=== PATIENT | male | born 1935 | race Caucasian/White ===

== ENCOUNTER 2018-11-19 12:52 | Inpatient (IN) ==
[2018-11-19] MEDS ORDERED: ZOFRAN ONE (13:03)
--- NOTE | 2018-11-19 13:22 | Diag Imaging Result Doc PS360 ---
EXAM: CT HEAD W/O CONTRAST HISTORY: AMS TECHNIQUE: CT head without contrast COMPARISON: 07/28/2017 FINDINGS: No parenchymal hemorrhage. No epidural or subdural hematoma. No subarachnoid hemorrhage. There is atrophy with chronic microvascular ischemic changes. No mass identified on this noncontrasted exam. No hydrocephalus. No sinus opacification. IMPRESSION: 1.No hemorrhage 2.Atrophy with chronic microvascular ischemic changes This exam was performed using automated exposure control, adjustment of mA or kV according to patient size, and/or use of iterative reconstruction technique. Electronically signed by Jon Espino 11/19/2018 1:20 PM
[2018-11-19] MEDS ORDERED: ATROPINE IV ONE ×2 (13:24→15:01)
[2018-11-19] MEDS ORDERED: ATROPINE ONE (13:26)
[2018-11-19 13:44] LABS: BASO# 0.01 X1000 (0.0-0.2); BASO% 0.1 % (0.0-0.8); EOS# 0.08 X1000 (0.0-0.7); EOS% 1.1 % (0.0-10.0); HEMATOCRIT 35.4 % (42.0-52.0); HEMOGLOBIN 12.2 g/dL (14.0-18.0); IMM GRAN# 0.02 X1000 (0.0-0.04); IMM GRAN% 0.3 % (0.0-0.5); LYMPH# 0.96 X1000 (1.2-3.4); LYMPH% 13.3 % (20.5-51.1); MCH 29.1 PG (27-31); MCHC 34.5 g/dL (33-37); MCV 84.5 FL (81-99); MONO# 0.38 X1000 (0.11-0.59); MONO% 5.3 % (1.7-9.3); MPV 10.6 FL (7.4-10.4); NEUT# 5.77 X1000 (1.4-6.5); NEUT% 79.9 % (42.2-75.2); PLT 149 X1000 (130-400); RBC 4.19 XMIL (4.7-6.1); RDW 13.4 % (11.5-14.5); WBC 7.22 X1000 (4.8-10.8)
[2018-11-19 13:49] LABS: INR 1.16; PROTIME 15.4 Seconds (11.0-16.0)
[2018-11-19 13:50] LABS: PTT 30.9 Seconds (22.3-41.8)
[2018-11-19 13:57] LABS: AGAP 12; ALBUMIN 4.3 g/dL (3.5-5.0); ALKALINE PHOSPHATASE 112 U/L (32-122); BUN 19 mg/dL (8-22); CHLORIDE 104 mmol/L (98-107); COSMO 286; CREATININE 0.9 mg/dL (0.7-1.2); ESTIMATED GFR > 60; GLUCOSE 179 mg/dL (70-104); GOT 25 U/L (10-34); GPT 19 U/L (10-44); POTASSIUM 3.9 mmol/L (3.5-5.1); SODIUM 140 mmol/L (136-145); TCO2 24 mmol/L (25-35); TOTAL PROTEIN 6.4 g/dL (6.3-8.3)
--- NOTE | 2018-11-19 14:13 | Diag Imaging Result Doc PS360 ---
EXAM: CHEST-1 VIEW HISTORY: AMS, vomiting TECHNIQUE: Chest single view COMPARISON: 11/02/2017 FINDINGS: The lungs are well expanded. The heart is not enlarged. The vessels are not distended. There are no infiltrates. No effusion identified. There is scarring in the medial right base. IMPRESSION: Right base scarring. Electronically signed by Jon Espino 11/19/2018 2:11 PM
[2018-11-19 14:18] LABS: BLOOD TYPE ARTERIAL; SAMPLE BLOOD
[2018-11-19 14:19] LABS: BE -0.7 mmoll (-3.0-3.0); HCO3-(ACT) 24.4 mmoll (20.0-26.0); METHB 1.2 % (0.0-1.5); O2HB 96.1 % (95.0-99.0); PCO2(98.6) 44 mmHg (35-45); PO2(98.6) 103 mmHg (60-100); SAO2 99.7 % (95.0-100.0); THB 11.7 g/dL (11.5-17.4); pH(98.6) 7.36 (7.35-7.45)
[2018-11-19 14:23] LABS: ALLEN TEST YES; MODALITY ROOM AIR
[2018-11-19] MEDS ORDERED: NS 1,000 ML IV ONE ×2 (14:28→21:02)
--- NOTE | 2018-11-19 14:28 | EKG Report ---
Test Performed on : 11/19/2018 12:55:47 PM Test Reason : AMS, vomiting Blood Pressure : / mmHG Vent. Rate : 058 BPM Atrial Rate : 058 BPM P-R Int : 166 ms QRS Dur : 102 ms QT Int : 510 ms P-R-T Axes : 054 019 048 degrees QTc Int : 500 ms Sinus bradycardia. with marked sinus arrhythmia. Septal infarct , age undetermined Prolonged QT Abnormal ECG When compared with ECG of 09-OCT-2018 13:36, Septal infarct is now present QT has lengthened Unconfirmed Result
[2018-11-19 14:42] LABS: URINE SOURCE CATH
[2018-11-19] MEDS ORDERED: AZACTAM 1 GM in NS 50 ML IV ONE (14:48)
[2018-11-19] MEDS ORDERED: VANCOMYCIN 1 GM/NS 1 GM/250 ML IVPB IV ONE (14:48)
[2018-11-19 15:00] LABS: BILIRUBIN URINE NEGATIVE (NEGATIVE); BLOOD URINE 4+ (NEGATIVE); GLUCOSE URINE NEGATIVE (NEGATIVE); KETONE URINE 2+(Moderate) mg/dL (NEGATIVE); LEUKOCYTES URINE TRACE (NEGATIVE); NITRITE URINE NEGATIVE (NEGATIVE); PROTEIN URINE 1+(30 mg/dL) mg/dL (NEGATIVE); SP GRAVITY URINE 1.025; UROBILINOGEN URINE NORMAL
[2018-11-19 15:01] LABS: CLARITY CLEAR (CLEAR); COLOR YELLOW
[2018-11-19 15:05] LABS: UR AMPHETAMINES QUAL NONE DETECTED (NONE DETECT); UR BARBITUATES QUAL NONE DETECTED (NONE DETECT); UR BENZODIAZEPIN QUAL PRESUMPTIVE POSITIVE (NONE DETECT); UR CANNABINOIDS QUAL NONE DETECTED (NONE DETECT); UR COCAINE QUAL NONE DETECTED (NONE DETECT); UR METHADONE QUAL NONE DETECTED (NONE DETECT); UR METHAMPHETAMINE QUAL NONE DETECTED (NONE DETECT); UR OPIATES QUAL NONE DETECTED (NONE DETECT); UR OXYCODONE QUAL NONE DETECTED (NONE DETECT); UR PCP QUAL NONE DETECTED (NONE DETECT); UR PROPOXYPHENE QUAL NONE DETECTED (NONE DETECT); UR TCA QUAL PRESUMPTIVE POSITIVE (NONE DETECT)
--- NOTE | 2018-11-19 18:51 | PROVIDER DOCUMENTATION ---
This chart was entered by Vandana Pinzon Scribe, acting as scribe for Kristian Amos MD. HPI-General Adult - General Stated Complaint: N/V CHEST PAIN Time Seen by Provider: 11/19/18 13:11 Source: patient, family () Allergies/Adverse Reactions: Patient Allergies Allergy/AdvReac Type Severity Reaction Status Date / Time codeine [Codeine] Allergy Intermediate Unknown Verified 11/19/18 14:16 Home Medications: Home Medication List Medication Instructions Recorded Confirmed Last Taken Type Atorvastatin Calcium [Lipitor] 40 mg PO HS 07/11/12 11/19/18 11/18/18 History Tamsulosin [Flomax] 0.4 mg PO DAILY 07/11/12 11/19/18 11/18/18 History Fish Oil/Dha/Epa [Fish Oil 1,200 1 ea PO DAILY 10/09/18 11/19/18 11/18/18 History mg Fish Oil] Acetaminophen 2 tab PO Q4H PRN PRN 10/16/18 11/19/18 11/18/18 History BENAZEpril [Lotensin] 10 mg PO DAILY 11/19/18 11/19/18 11/18/18 History Donepezil [Aricept] 10 mg PO DAILY 11/19/18 11/19/18 11/18/18 History Memantine HCl [Namenda] 10 mg PO DAILY 11/19/18 11/19/18 11/18/18 History Omeprazole 40 mg PO DAILY 11/19/18 11/19/18 11/18/18 History Quetiapine Fumarate [Seroquel] 100 mg PO HS 11/19/18 11/19/18 11/18/18 History - History of Present Illness -Gen Adult Nature of Presenting Problems: Patient is a 83 year old male who presents to the ED via EMS with generalized body aches, nausea, vomiting, headache and diaphoresis. states symptoms started after patient ate breakfast from [employer]. Patient denies chest pain, shortness of breath, and vision changes. Location of Pain/Injury: reports: generalized Pain Radiation: reports: no radiation Quality of Pain: reports: aching Severity: reports: mild Onset/Duration: reports: this morning Timing: reports: still present Context/Activities at Onset: reports: light activity Associated Symptoms: reports: diaphoresis, headaches, nausea, vomiting Similar Symptoms Previously?: No Recently seen or treated by another doctor?: No Review of Systems - Adult - REVIEW OF SYSTEMS - ADULT Constitutional: reports: no symptoms reported. denies: chills, fever, fatique Eyes: reports: no symptoms reported. denies: decreased vision, blurred vision, double vision Ears, Nose, Mouth & Throat: reports: no symptoms reported. denies: ear pain, nose pain, throat pain Cardiovascular: reports: no symptoms reported Respiratory: reports: no symptoms reported. denies: cough, shortness of breath, wheezing Gastrointestinal: reports: see HPI, nausea, vomiting. denies: abdominal pain, diarrhea Genitourinary: reports: no symptoms reported Musculoskeletal: reports: see HPI, muscle aches (generalized). denies: back pain, neck pain Integumentary: reports: no symptoms reported Neurological: reports: see HPI, headache/migraines (TILL[place]). denies: dizziness/vertigo, seizure, syncope Psychiatric: reports: no symptoms reported Endocrine: reports: no symptoms reported Hematologic/Lymphatic: reports: no symptoms reported Allergic/Immunologic: reports: no symptoms reported All Other Systems: Reviewed and Negative Past History - Adult - PAST MEDICAL HISTORY-ADULT Review of Records: reports: Old Records Reviewed, Nursing Assessment Review, Medications Reviewed, Social history reviewed & non-contributory. Major Childhood Illnesses: reports: denies history Cardiovascular: reports: HTN Respiratory: reports: asthma Gastrointestinal: reports: denies history Obstetrical/Gynecological: reports: denies history Genitourinary: reports: prostate cancer, other (renal disease) Musculoskeletal: reports: denies history Neurological: reports: dementia Endocrine/Immune: reports: denies history Other Conditions: reports: denies history - PRIOR SURGERIES/PROCEDURES Surgical/Procedure History: reports: reviewed, not pertinent, other (shoulder, prostecomy) - IMMUNIZATION STATUS Childhood Immunizations: See Nurse Assessment Flu Vaccine: See Nurse Assessment - FAMILY HISTORY Family History: reviewed, not pertinent - SOCIAL HISTORY Smoking: denies Substance Use: denies Living Situation: family Physical Exam-General - PHYSICAL EXAM-ADULT Initial Vital Signs Reviewed: Yes - CONSTITUTIONAL General Appearance: alert, no apparent distress, slow to respond. negative: obtunded - EYES Eyes: other (pinpoint pupils bilaterally). negative: scleral icterus, sunken eyes - HEAD, EARS, NOSE, MOUTH & THROAT HENMT: normocephalic/atraumatic, moist mucous membranes. negative: angioedema - RESPIRATORY Respiratory: chest non-tender, lungs clear, normal breath sounds. negative: crackles, rhonchi - CARDIOVASCULAR Cardiovascular: normal peripheral pulses, regular rate, rhythm. negative: tachycardia - GASTROINTESTINAL (ABDOMEN) Abdominal Exam: normal bowel sounds, non tender, soft. negative: rebound - MUSCULOSKELETAL Extremity: normal inspection. negative: deformity, erythema - SKIN Integumentary: normal color, normal turgor, warm/dry. negative: cyanosis, ecchymosis, jaundice - NEUROLOGIC Neurologic: other (unable to follow commands). negative: aphasia, facial droop - PSYCHIATRIC Psych/Mental Status: other (slow to respond). negative: normal mood/affect, anxious Progress - PLAN OF CARE/RESULTS Progress/Plan/Lab Results: Laboratory Results - last 24 hr 11/19/18 12:59 POC Glucose 172 H Orders Category Date Time Status Cardiac Monitoring DIRECTED Care 11/19/18 13:07 Active Nursing- Obtain EKG ONCE Care 11/19/18 13:07 Active CHEST-1 VIEW [RAD] Stat Exams 11/19/18 13:[address] HEAD W/O CONTRAST [CT] Stat Exams 11/19/18 13:05 Ordered BLOOD CULTURE [BLDCUL] Stat Lab 11/19/18 13:07 Uncollected CBC WITH DIFF [HEME] Stat Lab 11/19/18 13:06 Uncollected CK PROFILE [SP CHEM] Stat Lab 11/19/18 13:07 Ordered COMPREHENSIVE METABOLIC PANEL [CHEM] Stat Lab 11/19/18 13:07 Uncollected LACTATE, PLASMA [CHEM] Stat Lab 11/19/18 13:07 Uncollected TROPONIN T Stat Lab 11/19/18 13:07 [address]IS DIPSTICK ONLY PL [URINALYSIS] Stat Lab 11/19/18 13:07 Uncollected URINE DRUG SCREEN PL Stat Lab 11/19/18 13:07 Uncollected Ondansetron [Zofran] Med 11/19/18 13:03 Discontinued 4 mg .ROUTE .STK-MED ONE EKG [EKG] Stat Ther 11/19/18 13:07 Ordered Result Diagrams: 11/19/18 13:04 11/19/18 13:04 - EKG 1 Time of EKG reading by physician:: 12:55 EKG Read and Signed by:: Kristian Amos EKG Interpretation (*Must complete 3 of following elements*): Abnormal Rate: 58 Rhythm: sinus bradycardia with marked sinus arrhythmia [place]: normal [place] Interval: normal Comments: septal infarct, age undetermined; prolonged QT - XRAY 1 XRAY Study: Chest Impression: See EMR Report ( EXAM: CHEST-1 VIEW HISTORY: AMS, vomiting TECHNIQUE: Chest single view COMPARISON: 11/02/2017 FINDINGS: The lungs are well expanded. The heart is not enlarged. The vessels are not distended. There are no infiltrates. No effusion identified. There is scarring in the medial right base. IMPRESSION: Right base scarring. Electronically signed by Jon Espino 11/19/2018 2:11 PM 11/19/18 1411 Interpreting Physician: Jon Espino MD Dictated Date/Time: 11/19/18 1410 cc: Kristian Amos MD; None,PCP) - CT/MRI 1 CT Study: Head Impression: See EMR Report ( EXAM: CT HEAD W/O CONTRAST HISTORY: AMS TECHNIQUE: CT head without contrast COMPARISON: 07/28/2017 FINDINGS: No parenchymal hemorrhage. No epidural or subdural hematoma. No subarachnoid hemorrhage. There is atrophy with chronic microvascular ischemic changes. No mass identified on this noncontrasted exam. No hydrocephalus. No sinus opacification. IMPRESSION: 1.No hemorrhage 2.Atrophy with chronic microvascular ischemic changes This exam was performed using automated exposure control, adjustment of mA or kV according to patient size, and/or use of iterative reconstruction technique. Electronically signed by Jon Espino 11/19/2018 1:20 PM 11/19/18 1320 Interpreting Physician: Jon Espino MD Dictated Date/Time: 11/19/18 1318 cc: Kristian Amos MD;) - CONSULTS/PCP/HOSPITALIST Notification #1 *Consult/PCP/Hospitalist*: Dr. Hutchison Time Discussed: 15:56 Reason/Comments: Dr. Amos consulted with Dr. Hutchison about patient. Consult Disposition: other (Dr. Hutchison states he does not put in pacemakers.) #2 Consult: Silvia production editor @ . 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 These instructions are being provided to you so you can have an understanding of how to care for yourself upon discharge. Upon discharge from the Emergency Department, you are responsible for making arrangements for follow-up care by a physician of your choice. Take all prescribed medications as directed. Return to the Emergency Department immediately for any new or worsening symptoms. You may call the Physician Referral phone number at [phone] to obtain a list of Physicians who are taking new patients. Referrals and Follow-Ups: None,PCP [Primary Care Provider] - - Critical Care Note This patient required my direct & personal management of CC.: Yes Total Time (mins): 45 Critical Care Statement: This patient required my direct personal management to treat or rule out processes, the absence of which, could potentiallly result in sudden, clinically significant life or limb threatening deterioration. Attestation - Physician/ YVONNE Attestation Patient care was provided by Advanced Practice Provider:: No The physician spent face to face time with patient:: Yes Advanced Practice Provider documentation review:: Supervising physician onsite and consulted in the evaluation and care of this patient. The physician did have a face to face encounter with the patient. This chart was documented by the indicated scribe, (Vandana Pinzon Scribe) and accurately reflects the services I performed and decisions made by me, Kristian Amos MD, as attested by the provider's signature.
[2018-11-19] MEDS ORDERED: NS 1,000 ML ONE (20:48)
[2018-11-19 21:52] LABS: BILIRUBIN URINE NEGATIVE (NEGATIVE); BLOOD URINE 1+ (NEGATIVE); COLOR YELLOW; GLUCOSE URINE NEGATIVE (NEGATIVE); KETONE URINE TRACE mg/dL (NEGATIVE); LEUKOCYTES URINE TRACE (NEGATIVE); NITRITE URINE NEGATIVE (NEGATIVE); PROTEIN URINE TRACE mg/dL (NEGATIVE); URINE SOURCE CATH; UROBILINOGEN URINE 4 mg/dL
[2018-11-19 21:53] LABS: CLARITY CLEAR (CLEAR); URINE BACTERIA NEGATIVE /HFP; URINE EPITHELIAL CELLS <10 /HPF (<10); URINE WBC <10 /HPF (<10)
[2018-11-20 02:27] LABS: BASO# 0.02 X1000 (0.0-0.2); BASO% 0.3 % (0.0-0.8); EOS# 0.09 X1000 (0.0-0.7); EOS% 1.4 % (0.0-10.0); HEMATOCRIT 33.8 % (42.0-52.0); HEMOGLOBIN 11.6 g/dL (14.0-18.0); IMM GRAN# 0.01 X1000 (0.0-0.04); IMM GRAN% 0.2 % (0.0-0.5); LYMPH# 1.57 X1000 (1.2-3.4); LYMPH% 24.6 % (20.5-51.1); MCH 29.4 PG (27-31); MCHC 34.3 g/dL (33-37); MCV 85.6 FL (81-99); MONO# 0.47 X1000 (0.11-0.59); MONO% 7.4 % (1.7-9.3); NEUT# 4.21 X1000 (1.4-6.5); NEUT% 66.1 % (42.2-75.2); PLT 153 X1000 (130-400); RBC 3.95 XMIL (4.7-6.1); RDW 13.5 % (11.5-14.5); WBC 6.37 X1000 (4.8-10.8)
[2018-11-20 03:24] LABS: AGAP 11; ALBUMIN 3.9 g/dL (3.5-5.0); ALKALINE PHOSPHATASE 103 U/L (32-122); BUN 18 mg/dL (8-22); CALCIUM 8.7 mg/dL (8.8-10.2); CHLORIDE 108 mmol/L (98-107); COSMO 286; CREATININE 0.9 mg/dL (0.7-1.2); ESTIMATED GFR > 60; GLUCOSE 87 mg/dL (70-104); GOT 24 U/L (10-34); GPT 17 U/L (10-44); POTASSIUM 4.1 mmol/L (3.5-5.1); SODIUM 143 mmol/L (136-145); TCO2 25 mmol/L (25-35)
[2018-11-20] MEDS ORDERED: TYLENOL PO PRN (09:03)
[2018-11-20] MEDS: PRILOSEC PO SCH (09:44)
[2018-11-20] MEDS: ARICEPT PO SCH (09:45)
[2018-11-20] MEDS: TYLENOL PO PRN ×2 (09:45→22:52)
[2018-11-20] MEDS: FLOMAX PO SCH (09:46)
[2018-11-20] MEDS: FISH OIL CONCENTRATE PO SCH (09:46)
[2018-11-20] MEDS: NS 1,000 ML IV SCH ×2 (09:46→15:57)
[2018-11-20] MEDS: LOTENSIN PO SCH (09:46)
[2018-11-20] MEDS: NAMENDA PO SCH (09:47)
--- NOTE | 2018-11-20 10:11 | HISTORY AND PHYSICAL ---
PRIMARY CARE PHYSICIAN: Elke Desouza MD CHIEF COMPLAINT: Body aches, generalized, with nausea, vomiting, headache, and diaphoresis. HISTORY OF PRESENTING ILLNESS: This is an 83-year-old male, who presents to [facility] ER via EMS with complaints of generalized body aches, nausea, vomiting, headache, and diaphoresis. The states that the symptoms started after the patient ate breakfast from [employer]. He denied any chest pain, shortness of breath, or vision changes. When he arrived, he was found to have a heart rate of 42. He had a temperature of 94.8 degrees, that approximately an hour later went down to a 93.6. His laboratory data was unremarkable. His head CT showed no hemorrhage, but atrophy with chronic microvascular ischemic changes. Chest x- ray showed right base scarring. His EKG showed sinus bradycardia with marked sinus arrhythmia at 58. He was placed on a Jonn Hugger due to his hypothermia. Around 8:20 p.m. last night, his core temperature was noted to be 99, and the Jonn Hugger was removed. He was noted to have some confusion when he arrived. It is unclear if possibly the patient has been receiving too much of his Seroquel causing his bradycardia. After being admitted around 6 a.m. this morning, the patient was pulling at his medical equipment, trying to get out of the bed, pulling at his [place], and was confused, so he was placed in 4-point soft wrist and ankle restraints and admitted to the intensive care unit for further evaluation and treatment. PAST MEDICAL HISTORY: Hypertension, asthma, prostate cancer, dementia, and renal disease. PAST SURGICAL HISTORY: Shoulder surgery and a prostatectomy. FAMILY HISTORY: Reviewed and noncontributory. SOCIAL HISTORY: Currently lives with family. Denies any tobacco, alcohol, or illicit drug use. ALLERGIES: Codeine. HOME MEDICATIONS: We will hold his Seroquel 100 mg p.o. at bedtime. Continue the following: Acetaminophen 325 mg 2 tablets p.o. q.4 h. P.r.n. Lipitor 40 mg p.o. at bedtime. Benazepril 10 mg p.o. daily. Donepezil 10 mg p.o. daily. Fish oil 1200 mg p.o. daily. Namenda 10 mg p.o. daily. Omeprazole 40 mg p.o. daily. Tamsulosin 0.4 mg p.o. daily. DIAGNOSTIC STUDIES: White blood cell count of 7.22, hemoglobin 12.2, hematocrit 35.4, platelets 149,000. PT 15.4, INR 1.16. ABG with a pH of 7.36, pCO2 of 44, PO2 of 103, bicarbonate 24.4. Sodium 140, potassium 3.9, chloride 104, CO2 of 24, BUN of 19, creatinine 0.9, glucose 179. Cardiac enzymes were negative plasma lactate of 1.7. Urinalysis was negative. Urine drug screen was presumptive positive for tricyclics and benzodiazepines. Head CT showed no hemorrhage, atrophy with chronic microvascular ischemic changes. Chest x-ray showed right base scarring. EKG showed sinus bradycardia with marked sinus arrhythmia. REVIEW OF SYSTEMS: He denied any fever. He was actually hypothermic, had body aches, nausea, vomiting, headache, diaphoresis. Denied any chest pain, coughing, shortness of breath denied any abdominal pain, constipation, diarrhea, or burning or hurting with urination. PHYSICAL EXAMINATION: VITAL SIGNS: On arrival he had a temperature of 94.8 degrees, a pulse of 42, respirations 16, blood pressure 142/65, saturating 100% on room air. Again, it did go as low as 93.4, was placed on a Jonn Hugger, and now up to 98.6, pulse remains low at 52, blood pressure stable at 139/66, saturating 100% on room air. GENERAL: This is an 83-year-old male, who is lying in the bed. Able to answer some questions appropriately, but does still have some confusion and remains in 4-point restraints due to pulling at medical equipment. HEMNT: Normocephalic, atraumatic. Normal ENT inspection. Oropharynx and nares are clear. EYES: Pupils are equal, round, and reactive to light and accommodation. Extraocular movements are intact. NECK: Normal inspection. Normal range of motion. LUNGS: Clear to auscultation bilaterally with equal lung expansion and chest wall movement. HEART: Bradycardia, but no murmurs, rubs, or gallops noted. ABDOMEN: Soft, nontender, nondistended. Bowel sounds are present x4 quadrants. MUSCULOSKELETAL: Unable to assess at this time as he is in 4-point soft restraints, but appears to have been moving all extremities well, per caregiver and nurse prior to placing in the restraints. NEUROLOGICAL: The cranial nerves 2 through 12 appear grossly intact. ASSESSMENT: 1. Bradycardia. 2. Hypothermia, now resolved. 3. Polysubstance abuse. 4. Hypertension, history of. 5. Altered mental status with history of dementia. PLAN: He was admitted to the intensive care unit, placed on strict bed rest, telemetry, clear liquid diet. Urine culture and blood cultures are pending. We are doing serial troponins q.6 h. for 1 more set. We will continue his home medications, place him on normal saline at 100 mL an hour, but again we will hold his Seroquel. I did speak with the about his urine drug screen being positive for benzodiazepines and tricyclics. She denied him having a prescription for any of those or any knowledge that he would have taken any of those medications. We will check the state site and his pharmacy to make sure that he does not have a current prescription of that or that he has not been getting those were somewhere else, which certainly could be the side effect of his bradycardia and confusion, but we will investigate that a little bit further and discuss with attending. We will recheck a CBC BMP in the a.m. Further orders after seen by attending. Dictated by KRYSTEN Ambrose for Brennan Conn MD cc: KRYSTEN Ambrose MD Bernice Swain, MD
--- NOTE | 2018-11-20 20:00 | HISTORY AND PHYSICAL ---
ADDENDUM: Patient seen and examined. He was admitted to the hospital with apparent nausea and vomiting. He has had no further nausea or vomiting while he has been in the hospital, although his heart rate has been low, in the mid 40s to mid 50s. Uncertain if this is medication effect. We are going to admit him to the hospital. Continue observation and follow. Unfortunately, the patient's dementia makes history and physical next to impossible. Please see full note. cc: Brennan Conn MD
[2018-11-20] MEDS ORDERED: LIPITOR PO SCH (21:00)
[2018-11-21] MEDS: NS 1,000 ML IV SCH (01:27)
[2018-11-21] MEDS: PRILOSEC PO SCH (06:47)
[2018-11-21] MEDS: ARICEPT PO SCH (09:32)
[2018-11-21] MEDS: FISH OIL CONCENTRATE PO SCH (09:32)
[2018-11-21] MEDS: FLOMAX PO SCH (09:32)
[2018-11-21] MEDS: NAMENDA PO SCH (09:32)
[2018-11-21] MEDS: LOTENSIN PO SCH (09:33)
[2018-11-21 09:51] VITALS: BP 159/69
--- NOTE | 2018-11-21 15:35 | DISCHARGE SUMMARY ---
ADMISSION DATE: 11/19/2018 DISCHARGE DATE: 11/21/2018 PRIMARY CARE PHYSICIAN: Dr. Elke Desouza. ADMISSION DIAGNOSES: 1. Bradycardia. 2. Hypothermia, now resolved. 3. Polysubstance abuse. 4. History of hypertension. 5. Altered mental status with history of dementia. DISCHARGE DIAGNOSES: 1. Bradycardia. 2. Hypothermia, now resolved. 3. Polysubstance abuse, resolved. 4. History of hypertension. 5. Altered mental status with history of dementia, improved. SUMMARY OF FINDINGS: This is an 83-year-old male who presented to the ER with complaints of generalized body aches, nausea, vomiting, headache and diaphoresis. His states that the symptoms started after he ate breakfast at [employer] but he denied any chest pain, shortness of breath, or vision changes. He was noted to have a low heart rate at 42. His core body temperature was 94.8 degrees on arrival but did drop as low as 93.6 degrees. He was placed in a bear hugger and his core temperature came up to 99 degrees, so the bear hugger was removed. He had a positive urine drug screen for benzodiazepines and tricyclics, which we checked with the patient's pharmacy and he does not take any benzodiazepines or tricyclics. We also checked the 's medications and it did not appear that she took them either. So this certainly could have been a false positive or it could have been the reason that he was altered and presented with a low heart rate. Also, he could have been receiving too much Seroquel, all of which is unknown for certain. He was pulling on medical equipment and trying to get out of the bed when he first arrived, so we had to place him in 4-point soft wrist and ankle restraints. He is now alert and oriented, at his baseline. His heart rate went up during the night to the 60s and 70s but dropped back down this morning to 48, but he is stable otherwise. The patient refused rehabilitation and will be discharged home with his in stable condition. DISCHARGE MEDICATIONS: 1. Tylenol 650 mg p.o. q.4h p.r.n.. 2. Lipitor 40 mg p.o. q.h.s.. 3. Lotensin 10 mg p.o. daily. 4. Bentyl 20 mg p.o. t.i.d.. 5. Aricept 10 mg p.o. daily. 6. Fish oil 1200 mg p.o. daily. 7. Namenda 10 mg p.o. daily. 8. Omeprazole 40 mg p.o. daily. 9. Seroquel 100 mg p.o. q.h.s.. 10.Flomax 0.4 mg p.o. daily. FOLLOWUP: He will follow up with his primary care physician in the next 1 to 2 weeks and will call their office for an appointment. All discharge instructions were reviewed with the patient and he verbalized understanding. Time spent on discharge is 35 minutes. Dictated by KRYSTEN Ambrose for Brennan Conn MD cc: KRYSTEN Ambrose MD Bernice Swain, MD
--- NOTE | 2018-11-21 20:23 | DISCHARGE SUMMARY ---
ADMISSION DATE: 11/19/2018 DISCHARGE DATE: 11/21/2018 The patient seen and examined by myself. Full note dictated and discussed with nurse practitioner. On discharge the patient is awake and alert. He is in no distress. He does have dementia which is quite evident. His heart rates have remained stable. Certainly expect that he may have overtaken medication as to the cause of his bradycardia. Regardless, it has resolved. We are going to discharge him home. Please see full note. cc: Brennan Conn MD
== END 2018-11-21 11:50 | disposition home health service (06) | DRG 918 ==
LOC: P.ED 12:52 → P.ICU 20:17
PROVIDERS: ATTEND Family Medicine